=== PATIENT | male | born 1975 | race Two or more races ===

== ENCOUNTER 2021-12-12 10:18 | Inpatient (IN) | payer MEDICAID, OTHER ==
[~2021-12-12] VITALS: Ht 185.4 cm; Wt 90.0 kg
[2021-12-12] MEDS ORDERED: LABETALOL HCL 5 MG/ML 4ML SYRINGE IV ONE ×3 (11:05→11:15)
[2021-12-12 11:28] LABS: Basophils # (auto) 0 10 ^3/uL (0-0.2); Eosinophils # (auto) 0 10 ^3/uL (0-0.8); Hemoglobin 12.8 g/dL (13.5-17.5); Lymphocytes # (auto) 1.1 10 ^3/uL (0.4-5.4); Neutrophils # (auto) 6.2 10 ^3/uL (1.6-8.6)
[2021-12-12 11:30] LABS: Basophils % (auto) 0.4 % (0.0-2.0); Eosinophils % (auto) 0.3 % (0.0-7.0); Hematocrit 40.1 % (41.0-53.0); Lymphocytes % (auto) 13.5 % (10.0-50.0); Mean Corpuscular Hemoglobin 21.7 pg (28.0-32.0); Mean Corpuscular Hgb Conc. 31.8 g/dL (32.0-36.0); Mean Corpuscular Volume 68.3 fL (80.0-100.0); Monocytes # (auto) 0.5 10 ^3/uL (0-1.3); Neutrophils % (auto) 78.8 % (37.0-80.0); Nucleated Red Blood Cells % 0.1 %; Red Blood Cells 5.87 10^6/uL (4.5-5.90); Red Cell Distribution Width 16.9 % (11.8-14.3); White Blood Cell 7.8 10^3/uL (4.4-10.8)
[2021-12-12 11:42] LABS: INR 1.14 (0.9-1.15); Partial Thromboplastin Time 27.1 sec (23.6-33.0)
[2021-12-12 11:44] LABS: Albumin 4.1 g/dL (3.4-5.0); Calcium 9.5 mg/dL (8.5-10.1); Potassium 3.9 mmol/L (3.5-5.1)
[2021-12-12 11:46] LABS: BUN/Creatinine Ratio 9.8
[2021-12-12 11:48] LABS: Bilirubin, Total 0.5 mg/dL (0.2-1.0); Total Protein 8.3 g/dL (6.4-8.2)
[2021-12-12] MEDS ORDERED: MORPHINE SULFATE INJ 2 MG/ml SYRG IV PRN (16:00)
[2021-12-12] MEDS ORDERED: NITROGLYCERIN 0.4 MG SL TAB SL PRN (16:00)
[2021-12-12 16:23] LABS: Cholesterol 168 mg/dL (< 200)
[2021-12-12 16:26] LABS: HDL Cholesterol 43 mg/dL (40-59); LDL Cholesterol 111 mg/dL (< 100); Triglycerides 57 mg/dL (< 150)
[2021-12-12] MEDS ORDERED: niCARdipine 50 MG in SODIUM CHL 0.9% 230 ML IV SCH (21:15)
[2021-12-13] MEDS: niCARdipine 50 MG in SODIUM CHL 0.9% 230 ML IV SCH ×3 (00:35→17:39)
[2021-12-13 06:32] LABS: Calcium 9.8 mg/dL (8.5-10.1); Potassium 3.9 mmol/L (3.5-5.1)
[2021-12-13 06:34] LABS: BUN/Creatinine Ratio 10.2
[2021-12-13 06:37] LABS: Bilirubin, Total 0.6 mg/dL (0.2-1.0); Total Protein 8.2 g/dL (6.4-8.2)
[2021-12-13 06:39] LABS: Basophils # (auto) 0 10 ^3/uL (0-0.2); Eosinophils # (auto) 0 10 ^3/uL (0-0.8); Lymphocytes # (auto) 1.7 10 ^3/uL (0.4-5.4); Mean Corpuscular Hemoglobin 21.6 pg (28.0-32.0)
[2021-12-13 06:43] LABS: Basophils % (auto) 0.3 % (0.0-2.0); Eosinophils % (auto) 0.4 % (0.0-7.0); Hematocrit 42.2 % (41.0-53.0); Hemoglobin 13.3 g/dL (13.5-17.5); Lymphocytes % (auto) 18.6 % (10.0-50.0); Mean Corpuscular Hgb Conc. 31.5 g/dL (32.0-36.0); Mean Corpuscular Volume 68.6 fL (80.0-100.0); Monocytes # (auto) 0.6 10 ^3/uL (0-1.3); Monocytes % (auto) 7.1 % (0.0-12.0); Neutrophils # (auto) 6.6 10 ^3/uL (1.6-8.6); Neutrophils % (auto) 73.6 % (37.0-80.0); Nucleated Red Blood Cells % 0.1 %; Red Blood Cells 6.16 10^6/uL (4.5-5.90)
[2021-12-13] MEDS: ENOXAPARIN SOD 40 MG/0.4 ML SYRINGE SC SCH (11:52)
[2021-12-13] MEDS ORDERED: LABETALOL HCL 5 MG/ML 4ML SYRINGE IV PRN (17:15)
[2021-12-13] MEDS ORDERED: BENAZEPRIL HCL 10 MG TAB PO ONE (17:15)
[2021-12-13] MEDS ORDERED: NIFEdipine ER 30 MG TAB PO ONE (17:15)
[2021-12-13] MEDS ORDERED: cefTRIAXone 1GM/50ML D5W 50 ML IV ONE (18:00)
[2021-12-13] MEDS ORDERED: HCTZ 25 MG TAB PO ONE (18:00)
[2021-12-13] MEDS ORDERED: METOPROLOL TARTRATE 25 MG TAB PO ONE (18:00)
[2021-12-13 18:43] LABS: Urine Bacteria NONE SEEN /hpf (None Seen); Urine Blood Negative /uL (Negative); Urine Specific Gravity 1.016 (1.001-1.035); Urine WBC <1 /hpf (0 - 3)
[2021-12-13 19:05] LABS: Alcohol, Urine < 3.0 mg/dL (0-10); Amphetamine Screen, Urine NEGATIVE (NEGATIVE); Barbiturate Scree,Urine NEGATIVE (NEGATIVE); Benzodiazephine Screen, Urine NEGATIVE (NEGATIVE); Cannabinoid Screen, Urine POSITIVE (NEGATIVE); Cocaine Screen, Urine NEGATIVE (NEGATIVE); Opiate Scree,Urine NEGATIVE (NEGATIVE)
[2021-12-13 19:13] LABS: Phencyclidine Screen, Urine NEGATIVE (NEGATIVE)
[2021-12-13 19:19] LABS: Protein, Urine 26.8 mg/dL (0.0-11.9)
[2021-12-13] MEDS: hydrALAZINE HCL 20 MG/ML VL IV PRN (21:06)
[2021-12-13] MEDS: METOPROLOL TARTRATE 25 MG TAB PO SCH (22:31)
[2021-12-13 22:40] VITALS: BP 174/105
[2021-12-14] VITALS (25 sets, daily range): BP systolic 97–220; BP diastolic 50–129
[2021-12-14] MEDS: hydrALAZINE HCL 20 MG/ML VL IV PRN ×2 (05:56→15:55)
[2021-12-14] MEDS ORDERED: cefTRIAXone 1GM/50ML D5W 50 ML IV SCH (09:00)
[2021-12-14] MEDS: ENOXAPARIN SOD 40 MG/0.4 ML SYRINGE SC SCH (10:00)
[2021-12-14] MEDS ORDERED: BENAZEPRIL HCL 10 MG TAB PO SCH ×2 (10:00)
[2021-12-14] MEDS ORDERED: amLODIPine BESYLATE 5 MG TAB PO SCH (10:00)
[2021-12-14] MEDS ORDERED: HCTZ 25 MG TAB PO SCH (10:00)
[2021-12-14] MEDS ORDERED: NIFEdipine ER 30 MG TAB PO SCH (10:00)
[2021-12-14] MEDS: METOPROLOL TARTRATE 25 MG TAB PO SCH (11:20)
[2021-12-14] MEDS ORDERED: IOHEXOL 350 MG/ML 100ML IJ ONE (15:07)
[2021-12-14] MEDS ORDERED: LABETALOL INJECTION 250 MG in SODIUM CHL 0.9% 200 ML IV ONE (16:45)
[2021-12-14] MEDS ORDERED: LABETALOL HCL 5 MG/ML 4ML SYRINGE IV ONE ×2 (17:00)
[2021-12-14] MEDS ORDERED: ESMOLOL HCL-NS 10MG/ML 250 ML IV SCH (17:15)
[2021-12-14] MEDS ORDERED: LABETALOL INJECTION 250 MG in SODIUM CHL 0.9% 200 ML IV SCH (17:30)
[2021-12-14] MEDS ORDERED: SOD CHL 0.45% 1,000 ML IV SCH (18:00)
[2021-12-14] MEDS ORDERED: LABETALOL HCL 5 MG/ML 4ML SYRINGE IV PRN (18:30)
[2021-12-14] MEDS ORDERED: LABETALOL HCL 200 MG TAB PO ONE (18:30)
[2021-12-14] MEDS ORDERED: MORPHINE SULFATE INJ 2 MG/ml SYRG IV PRN (19:15)
[2021-12-14] MEDS ORDERED: ONDANSETRON HCL 4 MG/2 ML VIAL IV PRN (19:15)
[2021-12-14] MEDS ORDERED: HYDROmorphone HCL 2 MG/ML VL/or syr IV PRN (19:15)
[2021-12-14] MEDS ORDERED: LORazepam 2MG/ML-1ML VIAL IV PRN (19:15)
[2021-12-14] MEDS ORDERED: ENALAPRILAT 1.25 MG/ML-1ML VIAL IV PRN (19:15)
[2021-12-14] MEDS ORDERED: LABETALOL HCL 5 MG/ML ML 20ML VIAL IV ONE ×3 (19:35→20:04)
[2021-12-14 22:00] LABS: BUN/Creatinine Ratio 15.7; Calcium 9.4 mg/dL (8.5-10.1); Magnesium 2.5 mg/dL (1.6-2.6); Potassium 3.8 mmol/L (3.5-5.1)
[2021-12-15] MEDS ORDERED: LABETALOL HCL 200 MG TAB PO SCH (10:00)
== END 2021-12-14 23:05 | disposition short-term general hospital (02) | DRG 199 ==
LOC: ER 10:18 → TELE 15:53 → TELE-CENTR 12-13 22:59 → ICU WEST 12-14 17:31
PROVIDERS: ADMIT Registered Nurse; ATTEND Registered Nurse
DX: I16.1 Hypertensive emergency (principal); I71.00 Dissection of unspecified site of aorta; R65.10 Systemic inflammatory response syndrome (SIRS) of non-infectious origin without acute organ dysfunction; D50.9 Iron deficiency anemia, unspecified; E78.5 Hyperlipidemia, unspecified; F12.90 Cannabis use, unspecified, uncomplicated; I10 Essential (primary) hypertension; R73.03 Prediabetes; R50.9 Fever, unspecified; Z20.822 Contact with and (suspected) exposure to COVID-19
CPT/HCPCS: 36415; 70450; 71045; 71275; 80048; 80053; 80061; 80307; 81001; 82088; 82570; 82962; 83036; 83735; 83880; 84156; 84244; 84443; 84484; 85025; 85610; 85730; 87040; 87081; 87086; 87804; 93005; 93306; 93975; 96374; 99291; G0378; J0696; J2405; J3490; J7060

== ENCOUNTER 2022-03-04 21:12 | Emergency (ER) | payer SELFPAY ==
[~2022-03-04] VITALS: Ht 185.4 cm; Wt 88.8 kg
[2022-03-04 23:11] LABS: Basophils # (auto) 0 10 ^3/uL (0-0.2); Basophils % (auto) 0.7 % (0.0-2.0); Eosinophils # (auto) 0.1 10 ^3/uL (0-0.8); Lymphocytes # (auto) 1.9 10 ^3/uL (0.4-5.4); Mean Corpuscular Volume 68.2 fL (80.0-100.0); Nucleated Red Blood Cells % 0.1 %; White Blood Cell 6.6 10^3/uL (4.4-10.8)
[2022-03-04 23:12] LABS: Hematocrit 37.6 % (41.0-53.0); Hemoglobin 11.9 g/dL (13.5-17.5); Lymphocytes % (auto) 28.6 % (10.0-50.0); Mean Corpuscular Hemoglobin 21.5 pg (28.0-32.0); Mean Corpuscular Hgb Conc. 31.5 g/dL (32.0-36.0); Monocytes # (auto) 0.5 10 ^3/uL (0-1.3); Neutrophils # (auto) 4.1 10 ^3/uL (1.6-8.6); Neutrophils % (auto) 62.7 % (37.0-80.0); Red Blood Cells 5.51 10^6/uL (4.5-5.90); Red Cell Distribution Width 17.2 % (11.8-14.3)
[2022-03-04 23:32] LABS: Albumin 4.3 g/dL (3.4-5.0); BUN/Creatinine Ratio 12.8; Calcium 9.5 mg/dL (8.5-10.1); Potassium 3.6 mmol/L (3.5-5.1)
[2022-03-04 23:40] LABS: Bilirubin, Total 0.5 mg/dL (0.2-1.0); Total Protein 7.8 g/dL (6.4-8.2)
[2022-03-05] MEDS ORDERED: SODIUM CHLORIDE 0.9% 1,000 ML IV ONE (00:45)
[2022-03-05 05:29] VITALS: BP 152/92
== END 2022-03-05 05:37 | disposition home or self-care (01) ==
LOC: ER 21:12
DX: I10 Essential (primary) hypertension (principal); E86.0 Dehydration
CPT/HCPCS: 36415; 80053; 82962; 84484; 85025; 93005; 96360; 99284; J7030

== ENCOUNTER 2022-03-06 09:31 | Emergency (ER) | payer SELFPAY ==
[~2022-03-06] VITALS: Ht 185.4 cm; Wt 86.3 kg
[2022-03-06 12:22] VITALS: BP 142/92
== END 2022-03-06 12:25 | disposition home or self-care (01) ==
LOC: ER 09:31
DX: I16.0 Hypertensive urgency (principal); R20.0 Anesthesia of skin; I10 Essential (primary) hypertension; F12.10 Cannabis abuse, uncomplicated
CPT/HCPCS: 70450

== ENCOUNTER 2022-04-27 13:13 | Emergency (ER) | payer MEDICAID ==
[~2022-04-27] VITALS: Ht 175.3 cm; Wt 95.0 kg
[2022-04-27] MEDS ORDERED: cloNIDine HCL 0.1 MG TAB PO ONE (13:45)
[2022-04-27 16:10] VITALS: BP 149/104
== END 2022-04-27 16:18 | disposition home or self-care (01) ==
LOC: EDBD 13:13 → ER 13:13
DX: I10 Essential (primary) hypertension (principal); Z91.199 Patient's noncompliance with other medical treatment and regimen due to unspecified reason; F12.90 Cannabis use, unspecified, uncomplicated
CPT/HCPCS: 93005

== ENCOUNTER 2023-03-07 17:27 | Emergency (ER) | payer MEDICAID ==
[~2023-03-07] VITALS: Ht 188 cm; Wt 91.2 kg
[2023-03-07 17:31] VITALS: BP 146/86; PULSE 70; RESP 20; O2SAT 100
== END 2023-03-07 18:29 | disposition left against medical advice (07) ==
LOC: ER 17:27
DX: I10 Essential (primary) hypertension (principal); Z53.21 Procedure and treatment not carried out due to patient leaving prior to being seen by health care provider

== ENCOUNTER 2023-04-15 14:56 | Emergency (ER) | payer MEDICAID ==
[~2023-04-15] VITALS: Ht 188 cm; Wt 90.9 kg
[2023-04-15 16:10] VITALS: BP 155/96; PULSE 65; RESP 16; TEMP 99; O2SAT 100
[2023-04-15] MEDS ORDERED: PRED20TA2 PO (16:13)
[2023-04-15] MEDS ORDERED: OLOP0.2S15 OP (16:13)
== END 2023-04-15 16:23 | disposition home or self-care (01) ==
LOC: ER 14:56
DX: H10.13 Acute atopic conjunctivitis, bilateral (principal); R09.81 Nasal congestion; I10 Essential (primary) hypertension; Z79.899 Other long term (current) drug therapy

== ENCOUNTER 2024-01-28 09:16 | Emergency (ER) | payer OTHER ==
[~2024-01-28] VITALS: Ht 188 cm; Wt 97.8 kg
[~2024-01-28 09:16] MED LIST: ALBU108A5 IN; AMLO1TAB23 PO; CARV12.544 PO; FLUT1SPR5; HYDR25TA4 PO; HYDR50TA47 PO; MONT10TA23 PO; OLOP0.2S15 OP; PRED20TA2 PO
[2024-01-28 10:00] VITALS: PULSE 84; RESP 14; O2SAT 98
[2024-01-28 10:06] LABS: Basophils # (auto) 0 10 ^3/uL (0-0.2); Basophils % (auto) 0.2 % (0.0-2.0); Eosinophils # (auto) 0.1 10 ^3/uL (0-0.8); Eosinophils % (auto) 2.5 % (0.0-7.0); Hematocrit 44.3 % (41.0-53.0); Hemoglobin 13.9 g/dL (13.5-17.5); Lymphocytes # (auto) 1.6 10 ^3/uL (0.4-5.4); Lymphocytes % (auto) 29.3 % (10.0-50.0); Mean Corpuscular Hemoglobin 21.9 pg (28.0-32.0); Mean Corpuscular Hgb Conc. 31.4 g/dL (32.0-36.0); Mean Corpuscular Volume 69.6 fL (80.0-100.0); Monocytes # (auto) 0.3 10 ^3/uL (0-1.3); Monocytes % (auto) 6.1 % (0.0-12.0); Neutrophils # (auto) 3.3 10 ^3/uL (1.6-8.6); Neutrophils % (auto) 61.9 % (37.0-80.0); Nucleated Red Blood Cells % 0.1 %; Red Blood Cells 6.36 10^6/uL (4.5-5.90); Red Cell Distribution Width 17.4 % (11.8-14.3); White Blood Cell 5.4 10^3/uL (4.4-10.8)
[2024-01-28 10:21] LABS: INR 1.07 (0.9-1.15); Partial Thromboplastin Time 27.1 SEC (24.5-34.5); Prothrombin Time 11.3 sec (9.3-11.8)
[2024-01-28 10:24] LABS: Alanine Aminotransferase 36 U/L (7-40); Albumin 4.8 g/dL (3.2-4.8); Alkaline Phosphatase 36 U/L (46-116); Anion Gap 8 (5-15); Aspartate Aminotransferase 21 U/L (13-40); BUN/Creatinine Ratio 10.2 (10.0-20.0); Blood Urea Nitrogen 12 mg/dL (9-23); Calcium 9.9 mg/dL (8.7-10.4); Carbon Dioxide 25 mmol/L (20-30); Chloride 105 mmol/L (98-107); Glucose 116 mg/dL (74-106); Magnesium 1.8 mg/dL (1.6-2.6); Potassium 3.8 mmol/L (3.5-5.1); Sodium 138 mmol/L (136-145)
[2024-01-28 10:25] LABS: Bilirubin, Total 0.6 mg/dL (0.2-1.0); Total Protein 7.4 g/dL (5.7-8.2)
[2024-01-28] MEDS: DONNATAL 5ml ORAL Elix (BELLADONNA ALK-PHENOBARB) PO ONE (11:30)
[2024-01-28] MEDS: MAALOX PLUS or MAALOX 30 ML PO ONE (11:30)
[2024-01-28] MEDS: LIDOCAINE VISCOUS 2% 15ML UD PO ONE (11:31)
[2024-01-28] MEDS: METOCLOPRAMIDE HCL 10 MG TAB PO ONE (11:31)
[2024-01-28 12:00] VITALS: BP 134/87; RESP 15; O2SAT 95
[2024-01-28] MEDS ORDERED: OMEP20TA PO (12:13)
[2024-01-28] MEDS ORDERED: ALUMCHW6 PO (12:13)
[2024-01-28 12:14] VITALS: PULSE 83
[2024-01-28] MEDS ORDERED: METO-281 PO (12:14)
== END 2024-01-28 13:35 | disposition home or self-care (01) ==
LOC: ER 09:16
DX: R07.89 Other chest pain (principal); K21.00 Gastro-esophageal reflux disease with esophagitis, without bleeding; I10 Essential (primary) hypertension; F12.10 Cannabis abuse, uncomplicated
CPT/HCPCS: 36415; 71046; 80053; 83735; 84484; 85025; 85610; 85730; 93005; 99285; J8597

== ENCOUNTER 2024-02-09 18:09 | Emergency (ER) | payer OTHER ==
[~2024-02-09] VITALS: Ht 188 cm; Wt 98.0 kg
[~2024-02-09 18:09] MED LIST changes: +ALUMCHW6 PO; +METO-281 PO; +OMEP20TA PO
[2024-02-09 18:56] VITALS: BP 155/100; PULSE 74; RESP 14; TEMP 98.7; O2SAT 98
[2024-02-09] MEDS: cloNIDine HCL 0.1 MG TAB PO ONE (19:03)
== END 2024-02-09 22:49 | disposition home or self-care (01) ==
LOC: ER 18:09
DX: I10 Essential (primary) hypertension (principal); F12.90 Cannabis use, unspecified, uncomplicated; Z79.52 Long term (current) use of systemic steroids; Z79.899 Other long term (current) drug therapy